=== PATIENT | female | born 1970 | race Caucasian/White ===

== ENCOUNTER → 2021-12-13 13:56 | Outpatient (CLI) | payer SELFPAY ==
[2021-12-13 14:02] LABS: Basophils # 0.1 K/mm3 (0-0.2); Basophils % 1.2 % (0.1-2.0); Eosinophils # 0.1 K/mm3 (0.0-0.4); Eosinophils % 0.6 % (0.1-12.0); Hematocrit 48.7 % (37.0-47.0); Lymphocytes # 2.6 K/mm3 (0.7-4.5); Lymphocytes % 29.3 % (10-50); Mean Corpuscular HGB Conc 32.8 g/dL (31.8-35.4); Mean Corpuscular Hemoglobin 31.4 pg (27.0-31.2); Mean Corpuscular Volume 95.8 fl (81-99); Mean Platelet Volume 8.1 fl (7.4-10.4); Monocytes # 0.4 K/mm3 (0.1-1.0); Monocytes % 4.3 % (1.7-9.3); Neutrophils # 5.6 K/mm3 (1.8-7.8); Neutrophils % 64.6 % (37.0-80.0); Platelet Count 419 K/mm3 (142-424); Red Blood Count 5.08 M/mm3 (4.20-5.40); Red Cell Distribution Width 12.6 % (11.5-17.5); White Blood Count 8.7 K/mm3 (4.8-10.8)
[2021-12-13 14:05] LABS: Chloride 98 mmol/L (98-107); Potassium 4.7 mmoL/L (3.5-5.1); Sodium 135 mmol/L (136-145)
[2021-12-13 14:07] LABS: Alanine Aminotransferase 30 U/L (12-78); Aspartate Amino Transferase 31 U/L (14-36); Blood Urea Nitrogen 17 mg/dl (7-17); Estimated Glomerular Filt Rate 168 ml/min (>60); GFR (African American) 203 ML/MIN (>60)
[2021-12-13 14:08] LABS: Albumin Level 4.8 g/dl (3.5-5.0); Albumin/Globulin Ratio 1.7 (1.1-1.8); Alkaline Phosphatase 121 U/L (38-126); Anion Gap 16.7 mEq/L (5-15); Bilirubin,Total 0.4 mg/dl (0.2-1.3); Calcium 10.4 mg/dl (8.4-10.2); Carbon Dioxide 25 mmol/L (22.0-30.0); Chol/HDL Ratio 3.2 (1-3.5); Cholesterol 217 mg/dl (140-200); Globulin 2.9 g/dL (1.3-3.2); HDL Cholesterol 68 mg/dl (40-60); Total Protein,Serum 7.7 g/dl (6.3-8.2); Triglycerides 135 mg/dl (30-150); VLDL Cholesterol 27 mg/dL (0-40)
[2021-12-13 14:14] LABS: Glucose 443 mg/dl (74-100)
[2021-12-13 14:19] LABS: Direct LDL Cholesterol 118.44 mg/dL (100-129)
[2021-12-13 14:37] LABS: Thyroid Stimulating Hormone 0.89 uIU/mL (0.465-4.68)
[2021-12-13 14:38] LABS: Free T4 (Free Thyroxine) 1.14 ng/dl (0.78-2.19)
[2021-12-13 15:24] LABS: Hemoglobin A1C 13.8 % (4.0-6.0)
== END ==
PROVIDERS: PCP Emergency Medicine; Visit Provider Emergency Medicine
DX: R53.83 Other fatigue (principal); E11.9 Type 2 diabetes mellitus without complications; Z79.84 Long term (current) use of oral hypoglycemic drugs
CPT/HCPCS: 80053; 80061; 83036; 84439; 84443; 85025

== ENCOUNTER → 2022-12-18 23:11 | Outpatient (CLI) | payer SELFPAY ==
[2022-12-18 18:39] LABS: Basophils # 0.1 K/mm3 (0-0.2); Basophils % 0.5 % (0.1-2.0); Eosinophils # 0.2 K/mm3 (0.0-0.4); Eosinophils % 2.1 % (0.1-12.0); Hematocrit 48.7 % (37.0-47.0); Hemoglobin 15.2 g/dL (12.2-16.2); Lymphocytes # 3.2 K/mm3 (0.7-4.5); Mean Corpuscular HGB Conc 31.1 g/dL (31.8-35.4); Mean Platelet Volume 8.4 fl (7.4-10.4); Monocytes # 0.6 K/mm3 (0.1-1.0); Monocytes % 6.1 % (1.7-9.3); Neutrophils # 6.2 K/mm3 (1.8-7.8); Neutrophils % 60.3 % (37.0-80.0); Platelet Count 363 K/mm3 (142-424); Red Blood Count 5.24 M/mm3 (4.20-5.40); Red Cell Distribution Width 12.8 % (11.5-17.5); White Blood Count 10.3 K/mm3 (4.8-10.8)
[2022-12-18 19:29] LABS: Alanine Aminotransferase 36 U/L (12-78); Albumin Level 4.3 g/dl (3.5-5.0); Albumin/Globulin Ratio 1.6 (1.1-1.8); Alkaline Phosphatase 96 U/L (38-126); Anion Gap 19.8 mEq/L (5-15); Aspartate Amino Transferase 36 U/L (14-36); Bilirubin,Total 0.3 mg/dl (0.2-1.3); Blood Urea Nitrogen 13 mg/dl (7-17); Carbon Dioxide 21 mmol/L (22.0-30.0); Chloride 100 mmol/L (98-107); Chol/HDL Ratio 3.9 (1-3.5); Cholesterol 222 mg/dl (140-200); Estimated Glomerular Filt Rate 167 ml/min (>60); GFR (African American) 202 ML/MIN (>60); Globulin 2.7 g/dL (1.3-3.2); Glucose 300 mg/dl (74-100); HDL Cholesterol 57 mg/dl (40-60); Potassium 4.8 mmoL/L (3.5-5.1); Sodium 136 mmol/L (136-145); Triglycerides 159 mg/dl (30-150); VLDL Cholesterol 32 mg/dL (0-40)
[2022-12-18 19:40] LABS: Direct LDL Cholesterol 127.44 mg/dL (100-129)
[2022-12-18 19:59] LABS: Thyroid Stimulating Hormone 0.89 uIU/mL (0.465-4.68)
[2022-12-18 20:35] LABS: 25-OH Vitamin D, Total 39.5 ng/mL (30-100)
[2022-12-18 21:07] LABS: Hemoglobin A1C 11.6 % (4.0-6.0)
[2022-12-20 13:03] LABS: C-Peptide 3.1 ng/mL (1.1-4.4)
== END ==
PROVIDERS: PCP Emergency Medicine; Visit Provider Emergency Medicine
DX: E11.9 Type 2 diabetes mellitus without complications (principal); R53.83 Other fatigue; E66.3 Overweight; Z68.29 Body mass index [BMI] 29.0-29.9, adult; Z79.84 Long term (current) use of oral hypoglycemic drugs
CPT/HCPCS: 80053; 80061; 82306; 83036; 84439; 84443; 84681; 85025

== ENCOUNTER 2024-10-29 13:34 | Outpatient (CLI) | payer SELFPAY ==
[2024-10-29 18:20] LABS: Basophils # 0.1 K/mm3 (0-0.2); Basophils % 0.7 % (0.1-2.0); Eosinophils # 0.3 Kmm3 (0.0-0.4); Eosinophils % 2.7 % (0.1-12.0); Hematocrit 44.5 % (37.0-47.0); Hemoglobin 14.7 g/dL (12.2-16.2); Lymphocytes # 2.7 K/mm3 (0.7-4.5); Lymphocytes % 29.2 % (10-50); Mean Corpuscular Volume 90.8 fl (81-99); Mean Platelet Volume 10.5 fl (7.4-10.4); Monocytes # 0.6 K/mm3 (0.1-1.0); Monocytes % 6.6 % (1.7-9.3); Neutrophils # 5.5 K/mm3 (1.8-7.8); Neutrophils % 60.5 % (37.0-80.0); Nucleated Red Blood Cells # 0 10^3/uL; Nucleated Red Blood Cells % 0 %; Platelet Count 319 K/mm3 (142-424); Red Cell Distribution Width 12.1 % (11.5-17.5); Red Cell Distribution Width-SD 39.8 fL; White Blood Count 9.1 K/mm3 (4.8-10.8)
[2024-10-29 18:43] LABS: Albumin Level 4.2 g/dl (3.5-5.0); Chloride 98 mmol/L (98-107); Sodium 134 mmol/L (136-145)
[2024-10-29 18:44] LABS: Potassium 5.4 mmoL/L (3.5-5.1)
[2024-10-29 18:46] LABS: Alanine Aminotransferase 30 U/L (12-78); Albumin/Globulin Ratio 1.6 (1.1-1.8); Alkaline Phosphatase 183 U/L (38-126); Anion Gap 16.4 mEq/L (5-15); Aspartate Amino Transferase 26 U/L (14-36); Bilirubin,Total 0.3 mg/dl (0.2-1.3); Blood Urea Nitrogen 12 mg/dl (7-17); Carbon Dioxide 25 mmol/L (22.0-30.0); Estimated Glomerular Filt Rate 166 ml/min (>60); GFR (African American) 201 ML/MIN (>60); Globulin 2.6 g/dL (1.3-3.2); Total Protein,Serum 6.8 g/dl (6.3-8.2); Triglycerides 246 mg/dl (30-150); VLDL Cholesterol 49 mg/dL (0-40)
[2024-10-29 18:47] LABS: Calcium 9.6 mg/dl (8.4-10.2); Chol/HDL Ratio 3.3 (1-3.5); Cholesterol 119 mg/dl (140-200); HDL Cholesterol 36 mg/dl (40-60)
[2024-10-29 18:58] LABS: Direct LDL Cholesterol 54.71 mg/dL (100-129)
[2024-10-29 19:05] LABS: Glucose 456 mg/dl (74-100)
[2024-10-29 19:16] LABS: Thyroid Stimulating Hormone 0.57 uIU/mL (0.465-4.68)
[2024-10-29 19:44] LABS: Hemoglobin A1C > 14.0 % (4.0-6.0)
--- OUTSIDE RECORDS SUMMARY | 2024-10-30 09:37 | XMS_ITS ---
Author Organization Unknown TREATMENT PLAN [facility] Start Date Provider Encounter for Check-up [phone] [facility]
== END 2024-10-29 23:59 | disposition home or self-care (01) ==
LOC: LAB.DROPOF 10-30 09:35
PROVIDERS: PCP Family Medicine; Visit Provider Family Medicine
DX: Z00.00 Encounter for general adult medical examination without abnormal findings (principal); E11.9 Type 2 diabetes mellitus without complications; Z79.84 Long term (current) use of oral hypoglycemic drugs; Z79.4 Long term (current) use of insulin; Z68.27 Body mass index [BMI] 27.0-27.9, adult; E66.3 Overweight
CPT/HCPCS: 80053; 80061; 83036; 84443; 85025

== ENCOUNTER 2025-01-30 15:08 | Outpatient (CLI) | payer SELFPAY ==
--- OUTSIDE RECORDS SUMMARY | 2017-02-19 09:40 | XMS_ITS | Continuity of Care Document ---
Author Organization [facility] Address [address] [place] [address] Phone Care Team Providers Care Finish Photographer Name Role Phone Ta OD, Joy Unavailable Unavailable Allergies, Adverse Reactions, Alerts Substance Reaction Status Criticality No Known Allergies Active No Inform ation Medications Medication Instructions Dosage Effective Dates (start - stop) Status Comments RIOMET (unknown strength) Not Available - Active carvedilol 3.125 mg tablet take 1 tablet by oral route 2 times every day with food 3.125 MG - Active lisinopril 10 mg tablet take 1 tablet by oral route every day 10 MG - Active fluoxetine 20 mg capsule take 1 capsule by oral route 3 times every day in the morning 20 MG - Active simvastatin 40 mg tablet take 1 tablet by oral route every day in the evening 40 MG - Active glipizide 10 mg tablet take 1 tablet by oral route every day before a meal 10 MG - Active Procedures Procedure Date COMPREHENSIVE EXAM REFRACTION DIL RETINA EXAM INTERP REV DIL RETINA EXAM INTERP REV COMPREHENSIVE EXAM REFRACTION COMPREHENSIVE EXAM REFRACTION COMPREHENSIVE EXAM REFRACTION Advance Directives Directive Yes / No Effective Date File Name No Information Encounters Encounter Description Practice Location Reason(s) For Visit Diagnoses Date Provider Providers Copied on Encounter [facility], [address] [place], [address], tel:[phone] [place] diabetic eye exam (chief complaint) Type 2 diabetes mellitus without complicationsMy opia, bilateral 7 Ta Joy. [facility], [address] [place] [address], [facility], . tel:[phone] Referring Provider: Eugenia Ellis [address], [address]. [phone] [facility], [id number] [place] [address], [facility], tel:[phone] [place] diabetic eye exam (chief complaint) Type 2 diabetes mellitus without complicationsUn specified blepharitis right lower eyelidUnspecifi ed blepharitis left lower eyelidMyopia, bilateral 6 Ta Joy. [facility], [address] [place] [address], [facility], . tel:[phone] Referring Provider: Eugenia Ellis [address], [address]. [phone] [facility] [address], [address] [place] [address], [address], tel:[phone] [place] vision (chief complaint) pupil dilated (chief complaint) Refractive Error UnspecifiedDiab etes Type 2, W/O Comp 5 No Information Referring Provider: Eugenia Ellis [address], [address]. tel:[phone] [facility], [id number] [place] [address], [address], [place] tel:[phone] [place] Refractive Error UnspecifiedRefr active Error UnspecifiedDiab etes Type 2, W/O CompDiabetes Type 2, W/O CompConjuctivit is, Allergic/GPCCon juctivitis, Allergic/GPC 0 2 No Information Family History Family Member Type Diagnosis Age At Onset Grandmother (M) Problem (finding) cataract Grandmother (M) Problem (finding) diabetes mellitus ty pe 2 Father Problem (finding) diabetes mellitus type 2 Payers Payer name Insurance type Covered constitution party ID Authoriza tion(s) No Information Social History Type Description Quantity Date Captured Comments Alcohol Use Details Unknown Caffeine Use Details Unknown Tobacco Use Status Never smoked tobacco 2016 Smoking Status Never smoker Non-Smoking Tobacco Use Details : No Details Available : No Details Available Sex Female Chief Complaint And Reason For Visit From encounter dated '02/19/2017 13:40'. diabetic eye exam (chief complaint). Description: The 46 year old female presents for evaluation ofdiabetic eye exam in the right eye and left eye. Last exam was about 1 year ago. Patient is not noticing any changes in either distance or near vision. The condition is stable. Glucose levels are notwell controlled but its better now than in the past. Reason For Referral Reason For Referral No Information History Of Present Illness Encounter Date Complaint History Of Prese nt Illness diabetic eye exam The 46 year ol d female presents for evaluation of diabetic eye exam in the right eye and left eye. Last exam was about 1 year ago. Patient is not noticing any changes in either distance or near vision. The condition is stable. Glucose levels are not well controlled but its better now than in the past. diabetic eye exam The 45 year ol d female presents for evaluation of diabetic eye exam in the right eye and left eye. Last eye exam was 1 year ago. It affects both near and far vision with current glasses. The condition is worsening. Last A1C: 9.4, checked June 08, 2015. Last BS: 209 this morning. vision The 43 year old female presents for two year evaluation of vision in the right eye and left eye. Doing well. Patient notes vision is ok. Does note she has to take her glasses off to see up close. No longer wearing CLs due to this. +Type II DM, Avg BSL: ? A1c: 9.2 pupil dilated A few years ago patient was taking a science class, and her partner noticed one pupil was larger than the other. Since patient has noticed that one pupil does look larger than the other. First noticed about 5 years ago. Patient also had an episode of OU being blurred a couple years ago. She had trouble concentrating and lower back pains as well. Went to the ER and they were unable to figure out cause. Lasted about 2 days. (They did not test BSL as far as patient knows.) Functional Status Date Functional Assessmen t No Information Instructions Date Instruction Additional Mary landry Return in 1 year hima Schneider, OD for Dilated exam. Related to Type 2 diabetes mellitus without complications Impression/Plan - Re fractive error. New glasses Rx given. Related to Myopia, bilateral Impression/Plan - Di abetes mellitus, type 2, without retinopathy. Currently stable, will monitor, recheck in 1 year. Discussed importance of continued control of blood sugar. Patient told to call immediately if any change in vision. Related to Type 2 diabetes mellitus without complications Follow up - Return i n 1 year with Joy Schneider, OD for Dilated exam. Related to Type 2 diabetes mellitus without complications Return in 1 year hima Schneider, OD for Dilated exam. Related to Type 2 diabetes mellitus without complications Impression/Plan - Bl epharitis. Instruction sheet given.- Eyelid warm compress for five minutes two times a day. - Use lubricating drops 2-3 x a day, sample of Refresh given. Discontinue Visine. Related to Unspecified blepharitis right lower eyelid Impression/Plan - See plan #2. R elated to Unspecified blepharitis left lower eyelid Impression/Plan - Re fractive error. New glasses Rx given.Advised that blood sugar levels may cause fluctuations in vision, so Rx may change. Related to Myopia, bilateral Impression/Plan - Di abetes mellitus, type 2, without retinopathy. Currently stable, will monitor, recheck in 1 year. Discussed importance of continued control of blood sugar. Patient told to call immediately if any change in vision. Related to Type 2 diabetes mellitus without complications Follow up - Return i n 1 year with Joy Schneider, OD for Dilated exam. Related to Type 2 diabetes mellitus without complications Return in 1 year hima Bell MD for Diabetic exam. Related to Diabetes Type 2, W/O Comp Impression/Plan - Ne w glasses Rx given today. Consider vs first time progressive. Could go back to CL's, consider multifocal vs monovision vs readers over CL's. Discussed Lasik, patient understands she would still need glasses. Related to Refractive Error Unspecified Impression/Plan - DM - No Retinopathy. Control BS. F/U 1 yr. Call prn RSVP. Importance of follow up discussed. Related to Diabetes Type 2, W/O Comp Follow up - Return i n 1 year with Panda Bell MD for Diabetic exam. Related to Diabetes Type 2, W/O Comp - Return in 1 year w enriqueta Derrick Tavarez, OD for Complete Exam/Contacts. Related to Refractive Error Unspecified Conjuctivitis, Aller gic/GPC OU Condition: stable. - Conjunctivitis, giant papillary. Related to Conjuctivitis, Allergic/GPC Diabetes Type 2, W/O Comp OU Condition: stable. - Diabetes mellitus, type 2, without retinopathy. Currently stable, will monitor. Patient told to call immediately if any change in vision. Related to Diabetes Type 2, W/O Comp - Return in 1 year w enriqueta Tavarez, OD for CL annual check. Related to Refractive Error Unspecified myopia/astigmatism/p rebyopia - New glasses Rx was given today. Patient given new CLs today. Related to Refractive Error Unspecified Assessments Type Assessment Date assessment Type 2 diabetes mellitus without complications impression Type 2 diabetes felicity itus without complications: E11.9. Condition: established, stable. impression Myopia, bilateral: H52.13. Astig matism. Presbyopia. assessment Myopia, bilateral Patient Care Teams Name Effective Dates (start - stop) Status Members No Information
--- OUTSIDE RECORDS SUMMARY | 2025-01-30 15:11 | XMS_ITS | Clinical Summary ---
Author Organization Healthcare Address [address] [place] [address] Care Team Providers Care Community Health Education Coordinator Name Role Phone Sanchez Gallardo MD Primary Care Provider [phone] Allergies No known active allergies Medications metFORMIN (Glucophage) 500 MG tablet Take 500 mg by mouth 2 (two) times a day with meals. Active glyBURIDE (Diabeta) 5 MG tablet Take 5 mg by mouth 1 (one) time each day with breakfast. Active lisinopril 10 MG tablet Take 10 mg by mouth 1 (one) time each day. Active Active Problems Problem Noted Date Diagnosed Date Encounter for screening mammogram for breast can cer 09/25/2022 Assessment & Plan (09/25/2022 5:33 PM EDT): Mammogram ordered today Smear, vaginal, as part of r outine gynecological examination 09/25/2022 Assessment & Plan (09/25/2022 5:33 PM EDT): Pap today Mammogram ordered RTC for annual or prn Mixed stress and urge urinary incontinence 09/25 Assessment & Plan (09/25/2022 5:33 PM EDT): - we discussed management - we discussed pelvic floor physical therapy, medical management with medications, or surgical management with bladder sling - she would like to observe symptoms and if they worsen RTC Family History Medical History Relation Name Comments Diabetes Father Pancreatic cancer Maternal Grandmother Breast cancer Mother Relation Name Status Comments Father Maternal Grandmother Mother Social History Tobacco Use Types Packs/Day Years Used Date Smoking Tobacco: Never Smokeless Tobacco: Never Tobacco Cessation:Counseling Given: Not Answered Alcohol Use Standard Drinks/Week Comments Not Currently 0 (1 standard drink = 0.6 oz pur e alcohol) PHQ-2 Answer Date Recorded Patient Health Questionnaire-2 Score 0 09/25/2022 PHQ-2A Answer Date Recorded Patient Health Questionnaire-2 Score 0 09/25/2022 Comments No Sex and Gender Information Value Date Recorded Sex Assigned at Not on file Legal Sex Female 9:16 AM EST Gender Identity Not on file Sexual Orientation Not on file Plan of Treatment Health Maintenance Due Date Last Done Comments [facility]-HIV Screening 1969 [facility]-Hepatitis C Screening 1969 [facility]-/Child/Adol SDOH Screenings 1969 [facility]- SDOH Screenings 10/06/1987 [facility]-Adult SDOH Screenings 10/06/1987 [facility]-DTaP,Tdap,and Td Vaccine s (1 - Tdap) 1988 [facility]-Hepatitis B Vaccines (1 of 3 - 19+ 3-dose series) 1988 CT Colonography 2014 Colonoscopy 2014 FIT-DNA 2014 FIT 2014 FOBT 2014 Sigmoidoscopy 2014 [facility]-Colorectal Cancer Screening 2014 [facility]-Pneumococcal Vaccine: 50 + Years (1 of 1 - PCV) 10/06/2019 [facility]-Depression Screening 09/26/2023 09/25/2022 [id number]-[id number]-13 Vaccine ( - season) 2024 [facility]-Breast Cancer Screening 09/26/2024 09/26/2022 [facility]-Influenza Vaccine (#1) 2025 [facility]-Zoster Vaccines Completed 10/24/2021, 08/20/2021 [facility]-Cervical Cancer Screening Discontinued [facility]-HPV/Cotest Discontinued 09/25/2022 [facility]-Pap Smear Discontinued 09/25/2022 HPV Vaccines Aged Out No longer eligi ble based on patient's age to complete this topic [facility]-HIB Vaccines Aged Out No longer e ligible based on patient's age to complete this topic [facility]-Hepatitis A Vaccines Aged Out No longer eligible based on patient's age to complete this topic [facility]-IPV Vaccines Aged Out No longer e ligible based on patient's age to complete this topic [facility]-Rotavirus Vaccines Aged Out No lo nger eligible based on patient's age to complete this topic Procedures Procedure Name Priority Date/Time Associated Diagnosis Comments MAMMOGRAPHY BREAST SCREENING TOMOSYNTHESIS BILATERAL Routine 09/26/2022 1:31 PM EDT Encounter for screening mammogram for breast cancer PAP TEST - CYTOLOGY Routine 09/25/2022 2 :23 PM EDT Smear, vaginal, as part of routine gynecological examination from Last 3 Months or Most Recently Relevant to Health Maintenance Results * Mammography Breast Screening Tomosynthesis Bilateral (09/26/2022 1:31 PM EDT) Anatomical Region Laterality Modality Breast Bilateral Mammography Impressions 10/18/2022 12:34 PM EDT No mammographic evidence of malignancy. BI-RADS CATEGORY: Overall: 1 - Negative RECOMMENDATION: - Routine Screening Mammogram in 1 Year. Patient Lifetime Risk Score of Breast Malignancy: 14.0 % This risk assessment is calculated using the Diana Risk Assessment model which may underestimate the lifetime risk of breast malignancy. COMMUNICATION: Computer-aided detection (CAD) and tomosynthesis were utilized by the radiologist in the interpretation of this examination. The results and recommendations will be sent to the patient in a printed lay language version of the imaging report. Narrative 10/18/2022 12:34 PM EDT Table formatting from the original result was not included. EXAM: Mammography Breast Screening with Tomosynthesis REASON FOR EXAM: Screening Mammogram HISTORY: Patient is 52 y.o. Family medical history includes breast cancer in mother (age of onset: 45). Hormone history includes control (10 years). Surgical and procedural history include hysterectomy. COMPARISON STUDIES: No comparisons were made when reading this study. Note from Manny Ellison on 10/18/2022 10:32 AM Facility unable to forward prior imaging. Report is scanned into [employer]. BREAST COMPOSITION: The breasts are heterogeneously dense, which may obscure small masses. FINDINGS: There are no suspicious masses, calcifications, or areas of architectural distortion. Tessa Olivera MD IMG BI PROCEDURES Final Result * (ABNORMAL) Pap Test (09/25/2022 2:23 PM EDT) Case Report Cytology Case: [id number] Authorizing Provider: Tessa Olivera MD Collected: 09/25/2022 1423 Ordering Location: Obstetrics & Gynecology Received: 09/26/2022 0931 First Screen: Judith Pinto Pathologist: Janae Izquierdo MD Specimen: ThinPrep Pap Test, Liquid-Based Vaginal, VAGINAL 10/02/2022 11:55 AM EDT [facility] Interpretation ATYPICAL SQUAMOUS CELLS OF UNDETERMINED SIGNIFICANCE (ASCUS)(A) 10/02/2022 11:55 AM EDT [facility] at 1155 EDT Specimen Adequacy Satisfactory for evaluation. Slide imaged by the ThinPrep Imaging system and selected 22 call reviewed then full manual screening. 10/02/2022 11:55 AM EDT [facility] Cervical cytology is a screening test primarily for squamous cancers and precursors and has associated false negative and positive results. New technologies such as liquid based sampling may decrease but will not eliminate all false negative results. Regular screening and follow-up of unexplained clinical signs and symptoms are recommended to minimize false negative results. Please see the ASCCP website (www.asccp.org) for followup recommendations . If HPV testing was requested, correlation with the results is suggested (please call Microbiology at [phone] for results). 10/02/2022 11:55 AM EDT [facility] Menstrual Status Post-Menopausal 11:55 AM EDT [facility] History of Hysterectomy Hysterectomy without remaining cervix 10/02/2022 11:55 AM EDT [facility] Contraceptive History Not Applicable 10/02/2022 11:55 AM EDT [facility] Screening Type Routine Screen 2022 11:55 AM EDT [facility] High Risk? No 10/02/2022 11:55 AM EDT [facility] HPV Testing Requested? Request HPV Testing Regardless of Pap Test Findings 10/02/2022 11:55 AM EDT [facility] Previous Cancer History No 10/02/2022 11:55 AM EDT [facility] Clinical Information Z01.419, Z12.72 - Smear, vaginal, as part of routine gynecological examination [ICD-10-CM] 10/02/2022 11:55 AM EDT [facility] Swab Vaginal structure / Unknown Non-blood Collection / Unknown 09/25/2022 2:23 PM EDT 09/26/2022 9:25 AM EDT Tessa Olivera MD LAB CYTOLOGY ORDERABLES Final Result [facility] [address] [place] [address] from Last 3 Months or Most Recently Relevant to Health Maintenance Insurance [employer] Care Teams Community Health Education Coordinator Relationship Specialty Start Date End Date Sanchez Gallardo MD [address] [place] [address] PCP - General 09/25/22
[2025-01-30 16:02] LABS: Hematocrit 43.9 % (37.0-47.0); Hemoglobin 14.4 g/dL (12.2-16.2); Immature Granulocytes % 0.1 %; Mean Corpuscular HGB Conc 32.8 g/dL (31.8-35.4); Mean Corpuscular Hemoglobin 29.4 pg (27.0-31.2); Mean Corpuscular Volume 89.8 fl (81-99); Nucleated Red Blood Cells % 0 %; Platelet Count 320 K/mm3 (142-424); Red Blood Count 4.89 M/mm3 (4.20-5.40); Red Cell Distribution Width-SD 38.3 fL; White Blood Count 8.2 K/mm3 (4.8-10.8)
[2025-01-30 18:31] LABS: Albumin Level 3.7 g/dl (3.5-5.0); Chloride 96 mmol/L (98-107); Potassium 4.9 mmoL/L (3.5-5.1); Sodium 132 mmol/L (136-145)
[2025-01-30 18:34] LABS: Alanine Aminotransferase 45 U/L (12-78); Albumin/Globulin Ratio 1.2 (1.1-1.8); Alkaline Phosphatase 139 U/L (38-126); Anion Gap 11.9 mEq/L (5-15); Aspartate Amino Transferase 31 U/L (14-36); Bilirubin,Total < 0.1 mg/dl (0.2-1.3); Blood Urea Nitrogen 16 mg/dl (7-17); Carbon Dioxide 29 mmol/L (22.0-30.0); Creatinine,Serum 0.30 mg/dl (0.52-1.04); Estimated Glomerular Filt Rate 231 ml/min (>60); GFR (African American) 279 ML/MIN (>60); Globulin 3.1 g/dL (1.3-3.2); Total Protein,Serum 6.8 g/dl (6.3-8.2)
[2025-01-30 18:35] LABS: Calcium 9.7 mg/dl (8.4-10.2)
[2025-01-30 18:40] LABS: C-Reactive Protein 0.9 mg/L (0-4)
[2025-01-30 18:55] LABS: Glucose 407 mg/dl (74-100)
== END 2025-01-30 23:59 | disposition home or self-care (01) ==
LOC: LAB 15:09
PROVIDERS: PCP Family Medicine; Visit Provider Family Medicine
DX: E11.9 Type 2 diabetes mellitus without complications (principal); M25.50 Pain in unspecified joint; R53.1 Weakness; R13.10 Dysphagia, unspecified; R00.0 Tachycardia, unspecified; E66.3 Overweight; Z00.00 Encounter for general adult medical examination without abnormal findings
CPT/HCPCS: 36415; 80053; 85025; 86140; 87476